=== PATIENT | male | born 1955 | race Caucasian/White ===

== ENCOUNTER → 2022-05-20 | Outpatient (CLI) | payer MEDICARE, OTHER | LOC: KOH-I 11:00 | DX: E78.5 Hyperlipidemia, unspecified (principal); I65.23 Occlusion and stenosis of bilateral carotid arteries; K76.0 Fatty (change of) liver, not elsewhere classified; M47.816 Spondylosis without myelopathy or radiculopathy, lumbar region | CPT/HCPCS: 72100; 76705; 93880 ==

== ENCOUNTER → 2022-08-19 | Outpatient (CLI) | payer MEDICARE, OTHER | LOC: KOH-I 08-18 10:30 | DX: R25.1 Tremor, unspecified (principal); G31.9 Degenerative disease of nervous system, unspecified | CPT/HCPCS: 70551 ==